=== PATIENT | male | born 1990 | race Caucasian/White ===

== ENCOUNTER 2018-01-02 12:36 | Emergency (ER) | payer SELFPAY ==
[~2018-01-02] VITALS: Ht 152.4 cm; Wt 86.4 kg
[2018-01-02 12:52] VITALS: Ht 152.4 cm; Wt 86.4 kg
[2018-01-02] MEDS ORDERED: BUSPAR 15 MG TA15 MG PO (12:53)
[2018-01-02] MEDS ORDERED: CLOTRIMAZOLE10 ML TOPICAL (14:38)
[2018-01-02 14:48] VITALS: BP 124/078
== END 2018-01-02 14:48 | disposition home or self-care (01) ==
LOC: D.ER 12:36
DX: H60.8X2 Other otitis externa, left ear (principal); F17.200 Nicotine dependence, unspecified, uncomplicated